=== PATIENT | male | born 1985 | race Caucasian/White ===

== ENCOUNTER 2023-07-18 08:06 | Emergency (ER) | payer OTHER, SELFPAY ==
[2023-07-18] VITALS (9 sets, daily range): BP systolic 115–125; BP diastolic 71–86; PULSE 51–61; RESP 9–23; TEMP 36.7; O2SAT 95–99; BMI 34.8
--- NOTE | 2023-07-18 08:29 | DI.CT.S_ITS ---
PROCEDURE: CT ANGIO ABD/PEL GI BLEED INDICATIONS: RLQ PAIN, COLONOSCOPY 4 DAYS AGO TECHNIQUE: After the administration of intravenous contrast, 2.5 mm thick sections acquired from the diaphragm to the symphysis. 10 mm maximum-intensity projection (MIP) reformats were then acquired. For radiation dose reduction, the following was used: automated exposure control. COMPARISON: None. FINDINGS: Image quality: Excellent. Aorta: Unremarkable Mesenteric arteries: Celiac trunk, superior and inferior mesenteric arteries appear patent. Right pelvic arteries: Unremarkable Left pelvic arteries: Unremarkable Extravascular soft tissues: Lung bases are clear. Heart size is normal. Liver is normal in size and enhancement. Gallbladder is unremarkable without calcified gallstones. . Biliary system is non dilated. Pancreas enhances normally. Spleen is normal in size and enhancement. No adrenal nodules. Kidneys are normal in size and enhancement, without hydronephrosis. Non opacified bowel loops are normal in wall thickness and caliber. No free fluid or air. No retroperitoneal or mesenteric adenopathy. No ventral hernias. No suspicious bony lesions. No vertebral body compression fractures. Very small bilateral fat containing inguinal hernias. No active bleeding during the study. IMPRESSION: 1. No evidence of acute hemorrhage during the study. 2. No acute abdominal process identified. Dictated by: Mike Martin M.D. on 07/18/2023 at 8:54 Approved by: Mike Martin M.D. on 07/18/2023 at 8:58
[2023-07-18 08:39] LABS: Add Manual Diff / Slide Review NO; Basophils Absolute Auto 0 /uL (0-100); Basophils Percent Auto 0.8 % (0-2); Eosinophils Absolute Auto 100 /uL (0-450); Eosinophils Percent Auto 1.1 % (2-4); Hematocrit 47.1 % (41-53); Hemoglobin 15.8 g/dL (13.5-17.5); Lymphocytes Absolute Auto 1300 /uL (1100-4500); Lymphocytes Percent Auto 26.1 % (25-40); Mean Corpuscular HGB Conc 33.5 % (30-36); Mean Corpuscular Hemoglobin 28.7 PG (26-34); Mean Corpuscular Volume 85.5 fL (80-100); Monocytes Absolute Auto 500 /uL (0-900); Monocytes Percent Auto 10.3 % (3-14); Neutrophils Absolute Auto 3100 /uL (1500-7000); Neutrophils Percent Auto 61.7 % (50-75); Platelet Count 232 X10^3/uL (150-400); Red Blood Cell Count 5.51 X10^6/uL (4.5-5.9); Red Cell Distribution Width 13.1 % (11.6-14.8)
[2023-07-18 08:46] LABS: Alanine Aminotransferase 20 IU/L (<50); Albumin 4.2 g/dL (3.5-5.0); Albumin Globulin Ratio 1.4 (1.0-2.8); Alkaline Phosphatase 57 U/L (38-126); Aspartate Aminotransferase 22 IU/L (17-59); BUN Creatinine Ratio 14.6 (6-22); Bilirubin Total 0.9 mg/dL (0.2-1.3); Blood Urea Nitrogen 15 mg/dL (9-20); Calcium 9.2 mg/dL (8.4-10.2); Carbon Dioxide 28 mmol/L (22-32); Chloride 102 mmol/L (98-107); Estimated Glomerular Filt Rate > 60 mL/min (>60); Glucose 92 mg/dL (70-100); HEMOLYSIS < 15 (0-50); Potassium 4.3 mmol/L (3.4-5.1); Sodium 137 mmol/L (137-145); Total Protein 7.2 g/dL (6.3-8.2)
--- NOTE | 2023-07-18 08:46 | ED.ABDPAIN ---
HPI - Abdominal Pain General Chief Complaint: Abdominal Pain Stated Complaint: colonoscopy on Friday heavy bleeding Time Seen by Provider: 07/18/23 08:16 Source: patient Mode of arrival: Ambulatory History of Present Illness HPI narrative: 37-year-old male presents for right-sided abdominal pain as well as bleeding from his rectum x2 days. Patient had colonoscopy 4 days ago, 5 x3-6mm polyps were removed during the procedure. Patient states he has been recovering at home up until yesterday when he noticed large amounts of blood in his stool with clots. No medications taken prior to arrival. Approximates 1 cup of blood in stool so far since yesterday. Denies use of blood thinners. Related Data Allergies Allergy/AdvReac Type Severity Reaction Status Date / Time No Known Drug Allergies Allergy Verified 07/18/23 08:19 Review of Systems Review of Systems Narrative: Negative except as noted above Patient History Social History Smoking Status: Never smoker Smoking Status: Never smoker alcohol intake frequency: holidays/special occasions only Substance Use Type: does not use Exam Initial Vital Signs Initial Vital Signs: Vital Signs Temperature 98.1 F 07/18/23 08:13 Pulse Rate 55 L 07/18/23 08:13 Respiratory Rate 14 07/18/23 08:13 Blood Pressure 125/86 07/18/23 08:13 Pulse Oximetry 98 07/18/23 08:13 Oxygen Delivery Method Room Air 07/18/23 08:13 Const: Awake, alert, no acute distress, nontoxic appearing Eyes: PERRL, EOMI, conjunctiva normal ENT: Atraumatic, dentition normal, mucous membranes moist Cardiac: regular rate, regular rhythm RESP: unlabored, clear bilaterally, no wheezing GI: Atraumatic, soft, RLQ tenderness to deep palpation without rebound or guarding. MSK: Atraumatic, full range of motion, pulses equal Rectal: robotic welder present, nonthrombosed hemorrhoids present, no gross blood Skin: Warm, Dry, intact, no rashes Neuro: AO x3, CN II-XII grossly intact, moves all extremities Psych: affect normal, mood normal, not suicidal, not homicidal Course Course Course Narrative: Well-appearing patient with bleeding after colonoscopy, associated right lower quadrant pain. Abdomen is soft, he does have reproducible tenderness to deep palpation in the right lower quadrant. Given recent colonoscopy we will order labs and CT imaging. Orders Ordered: ED Orders 07/18/23 08:25 CBC Auto Diff [Complete Blood Count AUTO DIFF] Stat CMP [Comprehensive Metabolic Panel] Stat 07/18/23 08:29 CT angio Abd/Pel GI Bleed Stat Discontinued Medications Ketorolac Tromethamine (Ketorolac 30 Mg/Ml Vial) 15 mg IV NOW ONE Stop: 07/18/23 08:56 Last Admin: 07/18/23 09:03 Dose: 15 mg Documented By: SPF Reevaluation(s) Reevaluation #1: Laboratory work is unremarkable, hemoglobin 15. CT imaging shows no acute findings, no active bleeding. I discussed the patient's case with Dr. Boo (GI) who performed the patient's colonoscopy. He will have the office reach out to the patient for follow up, however patient does have both external and internal hemorrhoids and the bleeding is most likely caused from his hemorrhoids. He states that the polyps removed are too small to cause this level of bleeding especially several days postprocedure. He states that his long as the patient's hemoglobin is normal and he does not have an acute abdomen he is stable for outpatient follow up. Discussed with patient and his significant other at bedside, who were in agreement. ED return precautions discussed at bedside. Patient and expressed understanding of the plan and are in agreement at this time. All questions answered at the time of discharge. Vital Signs Vital signs: Vital Signs - 8 hr 07/18/23 08:13 07/18/23 08:13 07/18/23 08:28 Temperature 98.1 F Pulse Rate 55 L 61 56 L Respiratory Rate 14 23 12 Blood Pressure 125/86 Pulse Oximetry 98 96 96 Oxygen Delivery Method Room Air 07/18/23 08:28 07/18/23 08:30 07/18/23 08:30 Temperature Pulse Rate 57 L Respiratory Rate 10 L Blood Pressure 116/80 119/82 Pulse Oximetry 96 Oxygen Delivery Method Room Air 07/18/23 08:47 07/18/23 08:47 07/18/23 09:00 Temperature Pulse Rate 59 L Respiratory Rate Blood Pressure 121/77 120/71 Pulse Oximetry 97 Oxygen Delivery Method Room Air 07/18/23 09:00 07/18/23 09:30 07/18/23 09:30 Temperature Pulse Rate 54 L 58 L Respiratory Rate 14 Blood Pressure 118/72 Pulse Oximetry 95 97 Oxygen Delivery Method 07/18/23 10:00 07/18/23 10:00 07/18/23 10:30 Temperature Pulse Rate 53 L Respiratory Rate 10 L Blood Pressure 117/76 116/73 Pulse Oximetry 97 Oxygen Delivery Method Room Air 07/18/23 10:30 07/18/23 11:00 07/18/23 11:00 Temperature Pulse Rate 55 L 51 L Respiratory Rate 14 9 L Blood Pressure 115/74 Pulse Oximetry 97 99 Oxygen Delivery Method MDM - Abdominal Pain Differential Diagnosis Differential diagnosis: Likely abdominal pain, acute appendicitis and calculus of kidney Lab Data 07/18/23 08:25 07/18/23 08:25 Labs: Lab Results 07/18/23 Range/Units 08:25 WBC 5.0 (4.5-11.0) X10^3/uL RBC 5.51 (4.5-5.9) X10^6/uL Hgb 15.8 (13.5-17.5) g/dL Hct 47.1 (41-53) % MCV 85.5 (80-100) fL MCH 28.7 (26-34) PG MCHC 33.5 (30-36) % RDW 13.1 (11.6-14.8) % Plt Count 232 (150-400) X10^3/uL Neut % (Auto) 61.7 (50-75) % Lymph % (Auto) 26.1 (25-40) % Dolores % (Auto) 10.3 (3-14) % Eos % (Auto) 1.1 L (2-4) % Baso % (Auto) 0.8 (0-2) % Neut # (Auto) 3100 (0396-0599) /uL Lymph # (Auto) 1300 (3636-1279) /uL Dolores # (Auto) 500 (0-900) /uL Eos # (Auto) 100 (0-450) /uL Baso # (Auto) 0 (0-100) /uL Sodium 137 (137-145) mmol/L Potassium 4.3 (3.4-5.1) mmol/L Chloride 102 (98-107) mmol/L Carbon Dioxide 28 (22-32) mmol/L BUN 15 (9-20) mg/dL Creatinine 1.03 (0.66-1.25) mg/dL Estimated GFR > 60 (>60) mL/min BUN/Creatinine Ratio 14.6 (6-22) Glucose 92 (70-100) mg/dL Calcium 9.2 (8.4-10.2) mg/dL Total Bilirubin 0.9 (0.2-1.3) mg/dL AST 22 (17-59) IU/L ALT 20 (<50) IU/L Alkaline Phosphatase 57 (38-126) U/L Total Protein 7.2 (6.3-8.2) g/dL Albumin 4.2 (3.5-5.0) g/dL Globulin 3.0 (1.7-4.1) g/dL Albumin/Globulin Ratio 1.4 (1.0-2.8) Discharge Plan Departure Patient Disposition: Home Clinical Impression: Bleeding hemorrhoids Instructions: DI for Hemorrhoids Referrals: ProviderDaylin [Primary Care Provider] - Stand Alone Forms: Patient Portal/API
--- NOTE | 2023-07-18 08:57 | PC.NURSE ---
Pt states during CT scan when contrast was administered he became extremely nauseous, mouth watering, and came close to vomitting. Pt denies nausea while in his room now.
[2023-07-18] MEDS: KETOROLAC 30 MG/ML VIAL 15 MG IV (09:03)
== END 2023-07-18 11:15 | disposition home or self-care (01) ==
PROVIDERS: Emergency Provider Emergency Medicine
DX: K64.9 Unspecified hemorrhoids (principal); R10.31 Right lower quadrant pain
CPT/HCPCS: 36415; 74174; 80053; 85025; 96374; 99284; J1885